=== PATIENT | male | born 1985 | race Caucasian/White ===

== ENCOUNTER 2025-05-02 01:59 | Emergency (ER) | payer MEDICAID, SELFPAY ==
[2025-05-02 02:10] VITALS: BP 148/99; PULSE 95; RESP 20; TEMP 36.8; O2SAT 100
--- NOTE | 2025-05-02 03:22 | ED_ITS ---
HPI - General Adult General Chief complaint: Epistaxis Stated complaint: nose bleed Time Seen by Provider: 05/02/25 03:19 History of Present Illness HPI narrative: Patient is a 39-year-old gentleman presents emergency department chief complaint of nose bleed. The patient reports this evening his nose started bleeding reports that was bleeding heavily at home reports that it stopped and then started back up. The patient reports this time the bleeding has controlled Related Data Allergies Allergy/AdvReac Type Severity Reaction Status Date / Time No Known Allergies Allergy Unverified 01/25/15 00:49 Review of Systems Review of Systems: A 10 system review of systems was completed on the patient and is negative except for what is stated in the HPI. Nursing and ancillary documentation was reviewed. Exam Narrative: GENERAL: Well-appearing, well-nourished, and in no acute distress. HEAD: Normocephalic, atraumatic. EYES: PERRLA and EOMI. ENT: Nares clear, no rhinorrhea, clotted blood in the left nostril no active bleed. Mucous membranes moist. NECK: Supple. CHEST: Clear to auscultation. No respiratory distress. HEART: Regular rate and rhythm. No murmur heard. Normal peripheral pulses. ABDOMEN: Soft, nontender, nondistended, normal active bowel sounds. EXTREMITIES: Normal range of motion. No edema. SKIN: Warm, dry, no rash. NEURO: No focal deficits. Alert and oriented x3. PSYCH: Normal mood and affect. Medical Decision Making MDM Narrative Medical decision making narrative: Differential diagnosis includes epistaxis The patient this point has no active bleeding. The patient was treated with nasal spray and the patient has been observed in the emergency department with no active bleeding at this time. Discharge Plan Discharge Clinical Impression: Epistaxis Patient Disposition: Home Condition: Stable Instructions: Antibiotic Form, Nosebleed (ED) Patient Language: Nauruan Follow-up/Referrals: Rocael Benavides MD [Physician] - PHYSICIAN,TRAVELING SALES REPRESENTATIVE [Primary Care Provider] - Titus Mansfield MD [Physician] - Time of Disposition: 03:24
== END 2025-05-02 03:28 | disposition home or self-care (01) ==
LOC: ANHED 03:38
PROVIDERS: Emergency Provider Emergency Medicine
DX: R04.0 Epistaxis (principal)
CPT/HCPCS: 99281; A9270